=== PATIENT | male | born 1975 | race Caucasian/White ===

== ENCOUNTER → 2020-07-15 | Emergency (ER) | payer SELFPAY ==
[~2020-07-15] VITALS: Ht 172.7 cm; Wt 83.5 kg
[2020-07-15 17:38] VITALS: BP 131/83
--- NOTE | 2020-07-15 19:10 | NUR ---
UNABLE TO DEPART FROM [facility].
== END | disposition home or self-care (01) ==
LOC: ER 17:20
DX: U07.1 COVID-19 (principal); R05 Cough; F17.210 Nicotine dependence, cigarettes, uncomplicated
CPT/HCPCS: 71045-TC